=== PATIENT | male | born 1985 | race Caucasian/White ===

== ENCOUNTER 2018-01-14 06:56 | Day surgery (SDC) | payer BC ==
[~2018-01-14 06:56] MED LIST: Lactated Ringers 1,000 ML IV SCH
[2018-01-14] MEDS ORDERED: Lidocaine 2% 5 ML SDV ONE (07:24)
[2018-01-14] MEDS ORDERED: Ondansetron 4 MG/2 ML SDV ONE (07:24)
[2018-01-14] MEDS ORDERED: Rocuronium 10 MG/ML 10 ML Syringe ONE (07:24)
[2018-01-14] MEDS ORDERED: Midazolam 1 MG/ML 2 ML SDV ONE (07:25)
[2018-01-14] MEDS ORDERED: Propofol 200 MG/20 ML SDV ONE (07:25)
[2018-01-14] MEDS ORDERED: fentaNYL 100 MCG/2 ML SDV ONE (07:25)
[2018-01-14] MEDS ORDERED: Bupivacaine 0.5% 10 ML SDV ONE (07:29)
--- NOTE | 2018-01-14 07:32 | PCM.PREANE ---
Preanesthetic Assessment - Anesthesia/Transfusion/Family Hx Anesthesia History: Prior Anesthesia Without Reaction Family History of Anesthesia Reaction: No Transfusion History: No Prior Transfusion(s) Intubation History: Unknown - Review of Systems General: No Symptoms Pulmonary: No Symptoms Cardiovascular: No Symptoms Gastrointestinal: No Symptoms Neurological: No Symptoms Other: Reports: None - Physical Assessment O2 Sat by Pulse Oximetry: 98 Respiratory Rate: 16 Vital Signs: Last Vital Signs Temp 36.4 C 01/14/18 07:17 Pulse 71 01/14/18 07:17 Resp 16 01/14/18 07:17 BP 125/78 01/14/18 07:17 Pulse Ox 98 01/14/18 07:17 Height: 1.88 m Weight: 112.491 kg ASA Class: 2 Mental Status: Alert & Oriented x3 Airway Class: Mallampati = 3 Dentition: Reports: Normal Dentition, [place](s) (right lower (back) x1) Thyro-Mental Finger Breadths: 3 Mouth Opening Finger Breadths: 2 ROM/Head Extension: Full Lungs: Clear to Auscultation, Normal Respiratory Effort - Allergies Allergies/Adverse Reactions: Allergies Allergy/AdvReac Type Severity Reaction Status Date / Time No Known Allergies Allergy Verified 01/11/18 11:43 - Blood Blood Available: No - Anesthesia Plan Pre-Op Medication Ordered: None - Acknowledgements Anesthesia Type Planned: General Anesthesia Pt an Appropriate Candidate for the Planned Anesthesia: Yes Alternatives and Risks of Anesthesia Discussed w Pt/Guardian: Yes Pt/Guardian Understands and Agrees with Anesthesia Plan: Yes PreAnesthesia Questionnaire HEENT History: Reports: None Cardiovascular History: Reports: None Respiratory History: Reports: None Gastrointestinal History: Reports: Other (See Below) Other Gastrointestinal History: occasional heartburn Genitourinary History: Reports: None Musculoskeletal History: Reports: Fracture Other Musculoskeletal History: hx fx arms Neurological History: Reports: None Psychiatric History: Reports: None Endocrine/Metabolic History: Reports: Obesity/BMI 30+ Hematologic History: Reports: None Immunologic History: Reports: None Oncologic (Cancer) History: Reports: None Dermatologic History: Reports: None - Infectious Disease History Infectious Disease History: Reports: None - Past Surgical History Head Surgeries/Procedures: Reports: None GI Surgical History: Reports: Colonoscopy - SUBSTANCE USE Smoking Status *Q: Former Smoker (quit 5 years ago) Tobacco Use Within Last Twelve Months: Smokeless Tobacco Recreational Drug Use History: No - HOME MEDS Home Medications: Home Meds . [No Known Home Meds] 01/11/18 [History] - CURRENT (IN HOUSE) MEDS Current Meds: Current Medications Lactated Ringer's (Ringers, Lactated) 1,000 mls @ 125 mls/hr IV ASDIRECTED [facility] Last Admin: 01/14/18 07:19 Dose: 125 mls/hr Discontinued Medications Fentanyl (Sublimaze) Confirm Administered Dose 100 mcg .ROUTE .STK-MED ONE Stop: 01/14/18 07:26 Lidocaine (Xylocaine-Mpf 2%) Confirm Administered Dose 5 ml .ROUTE .STK-MED ONE Stop: 01/14/18 07:25 Midazolam HCl (Versed 1 Mg/Ml) Confirm Administered Dose 2 mg .ROUTE .STK-MED ONE Stop: 01/14/18 07:26 Ondansetron HCl (Zofran) Confirm Administered Dose 4 mg .ROUTE .STK-MED ONE Stop: 01/14/18 07:25 Propofol (Diprivan 20 Ml) Confirm Administered Dose 200 mg .ROUTE .STK-MED ONE Stop: 01/14/18 07:26 Rocuronium [place] (Zemuron) Confirm Administered Dose 100 mg .ROUTE .STK-MED ONE Stop: 01/14/18 07:25
[2018-01-14] MEDS ORDERED: fentaNYL 100 MCG/2 ML SDV IVPUSH PRN (08:12)
[2018-01-14] MEDS ORDERED: Ketorolac 30 MG/ML SDV ONE (08:18)
[2018-01-14] MEDS ORDERED: traMADol 50 MG Tab PO PRN (08:41)
[2018-01-14] MEDS ORDERED: Morphine 10 MG/ML Syringe IVPUSH PRN (08:41)
[2018-01-14] MEDS ORDERED: Lactated Ringers 1,000 ML IV SCH (08:45)
--- NOTE | 2018-01-14 08:50 | PCM.OPNOTE ---
- General Post-Op/Procedure Note Date of Surgery/Procedure: 01/14/18 Operative Procedure(s): Excision 2.2 cm right temporoparietal scalp mass. Excision 3.5 cm left temporal scalp mass. Pre Op Diagnosis: Symptomatic right and left scalp masses Post-Op Diagnosis: Same Anesthesia Technique: General LMA (ASA II) Primary Surgeon: Kendall Diez Fluid Replacement, Intraop: 800 EBL in mLs: 3 Condition: Good Free Text/Narrative:: Dictation [id number] CPT CODE [id number]
--- NOTE | 2018-01-14 09:27 | PCM48HPAN ---
Post Anesthesia Note - EVALUATION WITHIN 48HRS OF ANESTHETIC Vital Signs in Normal Range: Yes Patient Participated in Evaluation: Yes Respiratory Function Stable: Yes Airway Patent: Yes Cardiovascular Function Stable: Yes Hydration Status Stable: Yes Pain Control Satisfactory: Yes Nausea and Vomiting Control Satisfactory: Yes Mental Status Recovered: Yes Resp Rate: 12 - COMMENTS/OBSERVATIONS Free Text/Narrative:: No anesthesia problems
--- NOTE | 2018-01-14 13:40 | OR ---
SURGEON: Kendall Diez M.D. DATE OF PROCEDURE: 01/14/2018 OPERATION PERFORMED: 1. Excision of 2.2 cm right temporoparietal scalp mass. 2. Excision of 3.5 cm left temporal scalp mass. ANESTHESIA: General LMA. ASA CLASSIFICATION: II. PREOPERATIVE DIAGNOSIS: Symptomatic left and right scalp masses. POSTOPERATIVE DIAGNOSIS: Symptomatic left and right scalp masses.. ESTIMATED BLOOD LOSS: 3 mL. INTRAOPERATIVE FLUID REPLACEMENT: 800 mL of crystalloid. DESCRIPTION OF PROCEDURE: The patient was taken to the operating room and placed on the operating table in the supine position. Time-out was called for appropriate identification of the patient and procedure. Following satisfactory attainment of general endotracheal anesthesia with placement of an LMA, the patient's head was turned to the left and the right scalp approached first. The skin was prepped with Betadine solution. Sterile drapes were applied. Field block anesthesia was accomplished with 0.5% Marcaine solution. The skin incision was then made and deepened through the dermis down to the subcutaneous mass. This was removed using blunt dissection. Clinically, this had the appearance of an inclusion cyst. The wound was inspected for hemostasis. No significant bleeding was noted. The incision was then closed with running locked 4-0 nylon and dressed with bacitracin ointment. The drapes were all taken down, and the patient had now turned to the right. Again, the scalp mass, which had been identified prior to the patient entering the operating room, was now cleansed with Betadine solution. Sterile drapes were applied. This lesion measured 3.5 cm. The skin was again infiltrated in a field block technique using 0.5% Marcaine solution. The skin incision was made directly over the mass and deepened through the dermis. Hemostasis was obtained with the use of electrocautery. Again using blunt dissection, the subcutaneous mass was removed. Again, clinically, this had the appearance of an inclusion cyst. Bleeding sites were electrocoagulated. The incision was then closed with running locked 4-0 nylon. Both incisions were dressed with bacitracin ointment. The patient tolerated the procedure well. Following emergence from anesthesia and extubation, he was taken to recovery room in stable condition. RICH / GARLAND /[id number]
[2018-01-14 15:51] VITALS: BP 141/81
== END 2018-01-14 09:35 | disposition home or self-care (01) ==
LOC: MW.SDS 06:56
PROVIDERS: ATTEND Surgery
DX: L72.11 Pilar cyst (principal); E66.9 Obesity, unspecified; Z87.891 Personal history of nicotine dependence
CPT/HCPCS: 11423; 11424; J1885; J2250; J2405; J3010; J7120; J2704